=== PATIENT | male | born 1955 | race Caucasian/White ===

== ENCOUNTER 2019-04-26 04:51 | Emergency (ER) | payer MEDICAID ==
[~2019-04-26] VITALS: Ht 177.8 cm; Wt 86.4 kg
[2019-04-26 04:52] VITALS: BP 148/98
[2019-04-26] MEDS ORDERED: HYDROcodone/acetaminophen 5mg/325mg tablet PO ONE (05:10)
[2019-04-26] MEDS ORDERED: DICL50TA8 PO (05:10)
[2019-04-26] MEDS ORDERED: ketorolac trometh inj. 60 MG/2 ML VIAL IM ONE (05:10)
== END 2019-04-26 05:24 | disposition home or self-care (01) ==
LOC: ER 04:51
DX: M25.562 Pain in left knee (principal); G89.29 Other chronic pain; M54.9 Dorsalgia, unspecified
CPT/HCPCS: 96372; 99284; J1885

== ENCOUNTER 2022-07-30 11:25 | Emergency (ER) | payer OTHER, MEDICAID ==
[~2022-07-30] VITALS: Ht 177.8 cm; Wt 83.0 kg
[~2022-07-30 11:25] MED LIST: ALBU8.5H17 IH; BUDE10.2 INH; CYAN500T71 PO; CYCL-1 PO; DOXY100C76 PO; GABA-530 PO; HYDR12.55 PO; LISI40TA13 PO; PANT-47 PO; SERT50TA PO; TIOT18CA3 INH; TRAM50TA2 PO
[2022-07-30 11:28] VITALS: BP 158/96
[2022-07-30] MEDS ORDERED: nystatin 500,000 unit/5ML UD oral suspension PO STA (12:07)
[2022-07-30] MEDS ORDERED: NYST1000 PO (12:13)
== END 2022-07-30 12:37 | disposition home or self-care (01) ==
LOC: ER 11:25
DX: B37.0 Candidal stomatitis (principal); G89.29 Other chronic pain; M54.9 Dorsalgia, unspecified; Z79.899 Other long term (current) drug therapy; Z79.1 Long term (current) use of non-steroidal anti-inflammatories (NSAID); Z79.2 Long term (current) use of antibiotics
CPT/HCPCS: 99283

== ENCOUNTER 2022-10-17 17:05 | Emergency (ER) | payer OTHER, MEDICAID ==
[~2022-10-17] VITALS: Ht 177.8 cm; Wt 93.6 kg
[2022-10-17] MEDS ORDERED: glucagon, human recombinant 1mg kit IV ONE (18:35)
[2022-10-17] MEDS ORDERED: nitroGLYCERIN 0.4mg SUBLingual tab SL PRN (18:35)
[2022-10-17] MEDS ORDERED: LORazepam 2 mg/ml vial IM ONE (18:35)
--- NOTE | 2022-10-18 00:53 | NUR ---
Pt awaiting procedure. there is a pt in the OR at this time so pt still waiting in the ER.
[2022-10-18] MEDS ORDERED: neostigmine methylsulfate 1 MG/ML 10ml vial ONE (01:40)
[2022-10-18] MEDS ORDERED: propofol 10mg/ml 20ml vial IV ONE (01:40)
[2022-10-18] MEDS ORDERED: sevoflurane 250ml liquid IH ONE (01:40)
[2022-10-18] MEDS ORDERED: rocuronium 10mg/ml inj IV ONE (01:40)
[2022-10-18] MEDS ORDERED: ondansetron/PF 4mg/2ml inj ONE (01:40)
[2022-10-18] MEDS ORDERED: LIDOcaine 2% (20mg/ml) 5ml vial ONE (01:40)
[2022-10-18] MEDS ORDERED: glycopyrrolate 0.2mg/ml inj ONE (01:40)
[2022-10-18] MEDS ORDERED: midazolam 1 mg/ML 2ml injection ONE (01:42)
[2022-10-18] MEDS ORDERED: fentaNYL/PF 50MCG/1 ML 2ML syringe ONE (01:42)
[2022-10-18 02:15] VITALS: BP 174/107
[2022-10-18] MEDS ORDERED: acetaminophen 1,000mg/100ml IV 100 ML IV PRN (02:15)
[2022-10-18] MEDS ORDERED: ringers solution, lacted 1,000 ML IV SCH (02:15)
[2022-10-18] MEDS ORDERED: labetalol 20mg/4ml (5mg/ml) syringe IV PRN (02:15)
[2022-10-18] MEDS ORDERED: fentaNYL/PF 50MCG/1 ML 2ML syringe IV PRN (02:15)
[2022-10-18] MEDS ORDERED: hydrALAZINE 20mg/ml inj. IV PRN (02:15)
[2022-10-18] MEDS ORDERED: ondansetron/PF 4mg/2ml inj IV PRN (02:15)
[2022-10-18] MEDS ORDERED: morphine 2 MG/ML inj. syringe IV PRN (02:15)
[2022-10-18] MEDS ORDERED: proCHLORperazine 10 MG/2 ml inj IV PRN (02:15)
[2022-10-18 02:25] VITALS: BP 130/94
[2022-10-18 02:35] VITALS: BP 138/62
[2022-10-18 02:45] VITALS: BP 164/98
--- NOTE | 2022-10-18 02:45 | NUR ---
PATIENT A&OX4, DENIES PAIN, V/S STABLE, NO DRESSINGS FOR EGD, 20G PIV, SCD ON, PATIENT RETURNED TO ER ROOM 10 AND HOOKED UP TO MONITORS IN ROOM AND REPORT GIVEN TO [employer] WHO HAS TAKEN OVER PATIENT CARE. PATIENT CLEARED FOR D/C HOME BY GI
== END 2022-10-18 03:22 | disposition home or self-care (01) ==
LOC: ER 17:08
DX: K20.80 Other esophagitis without bleeding (principal); K29.70 Gastritis, unspecified, without bleeding; G89.29 Other chronic pain; M54.9 Dorsalgia, unspecified; Z79.899 Other long term (current) drug therapy
CPT/HCPCS: 43239; 96372; 96374; 99285; J1610; J2060; J2250; J3010; Z7506; Z7512; 99284; A4618; J2405; J2704; J2710; J3490